=== PATIENT | male | born 1955 | race Two or more races ===

== ENCOUNTER 2025-07-04 03:16 | Inpatient (IN) | payer MEDICAID, OTHER ==
[~2025-07-04] VITALS: Ht 170.2 cm; Wt 99.5 kg
[2025-07-04] VITALS (10 sets, daily range): BP systolic 139–158; BP diastolic 77–92; PULSE 71–132; RESP 12–20; TEMP 98.1–98.8; O2SAT 94–100
--- NOTE | 2025-07-04 03:50 | ED.PDOC ---
GI ASSESSMENT HPI Comments 70-year-old male who came to ER for abdominal pain. Patient states he woke up at around 2:00 a.m. due to sudden-onset abdominal pain, localized at the epigastric area, sharp, constant, nonradiating, associated bouts of nausea and vomiting. Denies any history of abdominal surgeries/ Chief Complaint: Abdominal Pain Time Seen by MD: 03:49 Reviewed Notes: Nurses Notes Allergies: Coded Allergies: No Known Drug Allergy (Verified Allergy, Unknown, 07/04/25) Information Source: Patient Mode of Arrival: Ambulatory Timing: Hours Duration: Since onset Prehospital treatment: None Quality: Sharp, None Vomitus: Watery Stool: Normal Severity: Moderate Recent Hx of: None Pain Location: Epigastric Associated sign and symptoms: Nausea, Vomiting, Abdominal Pain Past Medical History PAST MEDICAL HISTORY: DM, HTN Surgical History: Denies all surgeries Family History Family History: Reviewed,noncontributory to illness Social History Smoker: Non-Smoker Alcohol: Denies ETOH Use Drugs: Denies Drug Use Lives In: Home Constitutional: denies: chills, diaphoresis, fatigue, fever, malaise, sweats, weakness, others EENTM: denies: blurred vision, double vision, ear bleeding, ear discharge, ear drainage, ear pain, ear ringing, eye pain, eye redness, hearing loss, mouth pain, mouth swelling, nasal discharge, nose bleeding, nose congestion, nose pain, photophobia, tearing, throat pain, throat swelling, voice changes, others Respiratory: denies: cough, hemoptysis, orthopnea, SOB at rest, shortness of breath, SOB with excertion, stridor, wheezing, others Cardiovascular: denies: chest pain, dizzy spells, diaphoresis, Dyspnea on exertion, edema, irregular heart beat, left arm pain, lightheadedness, palpitations, PND, syncope, others Gastrointestinal: reports: abdominal pain, nausea, vomiting; denies: abdomen distended, blood streaked bowels, constipated, diarrhea, dysphagia, difficulty swallowing, hematemesis, melena, poor appetite, poor fluid intake, rectal bleeding, rectal pain, others Genitourinary: denies: burning, dysuria, flank pain, frequency, hematuria, incontinence, penile discharge, penile sore, pain, testicle pain, testicle sw elling, urgency, others Neurological: denies: dizziness, fainting, headache, left sided numbness, left sided weakness, numbness, paresthesia, pre-existing deficit, right sided numbness, right sided weakness, seizure, speech problems, tingling, tremors, weakness, others Musculoskeletal: denies: back pain, gout, joint pain, joint swelling, muscle pain, muscle stiffness, neck pain, others Integumetry: denies: bruises, change in color, change in hair/nails, dryness, laceration, lesions, lumps, rash, wounds, others Allergic/Immunocompromised: denies: Difficulty Healing, Frequent Infections, Hives, Itching, others Hematologic/Lymphatic: denies: anemia, blood clots, easy bleeding, easy bruising, swollen glands, others Endocrine: denies: excessive hunger, excessive sweating, excessive thirst, excessive urination, flushing, intolerance to cold, intolerance to heat, unexplained weight gain, unexplained weight loss, others Psychiatric: denies: anxiety, bipolar disorder, depression, hopeless, panic disorder, schizophrenia, sleepless, suicidal, others Physical Exam General Appearance: Moderate Distress, Normal HEENT: Normal ENT Inspection, Pharynx Normal, TMs Normal Neck: Full Range of Motion, Non-Tender, Normal, Normal Inspection Respiratory: Chest Non-Tender, Lungs Clear, No Accessory Muscle Use, No Respiratory Distress, Normal Breath Sounds Cardiovascular: No Edema, No JVD, No Murmur, No Gallop, Normal Peripheral Pulses, Regular Rate/Rhythm Breast Exam: Deferred Gastrointestinal: Diffuse, No Organomegaly, No Pulsatile Mass, Normal Bowel Sounds, Soft Genitalia: Deferred Pelvic: Deferred Rectal: Deferred Extremities: No calf tenderness, Normal capillary refill, Normal inspection, Normal range of motion, Non-tender, No pedal edema Musculoskeletal : Apperance: Normal Neurologic: Alert, rock wool insulator II-XII nml as Tested, No Motor Deficits, Normal Affect, Normal Mood, No Sensory Deficits Cerebellar Function: NOT DONE Reflexes: NOT DONE Skin: Dry, Normal Color, Warm Peripheral Pulses: 3+ Radial (R), 3+ Radial (L) Lymphatic: No Adenopathy Was a procedure done? Was a procedure done?: No GI differential Dx Differential Diagnosis: Diverticular disease, Esophagitis, Gastritis/PUD, Gastroenteritis, Hernia, Hepatitis, Pancreatitis, UTI, Urolithiasis X-Ray, Labs, Meds, VS Vital Signs Date Time Temp Pulse Resp B/P (MAP) Pulse Ox O2 Delivery O2 Flow Rate FiO2 07/04/25 05:06 71 16 161/71 07/04/25 04:57 71 16 94 Room Air* 0 21 07/04/25 04:53 98.4 71 16 161/71 (101) 94 98.4 07/04/25 03:17 97.6 71 16 166/113 96 97.6 Lab Test 07/04/25 04:01 Range/Units White Blood Count 12.8 H 4.4-10.8 10^3/uL Red Blood Count 5.48 4.5-5.90 10^6/uL Hemoglobin 16.3 13.5-17.5 g/dL Hematocrit 48.5 41.0-53.0 % Mean Corpuscular Volume 88.5 80.0-100.0 fL Mean Corpuscular Hemoglobin 29.7 28.0-32.0 pg Mean Corpuscular Hemoglobin Concent 33.6 32.0-36.0 g/dL Red Cell Distribution Width 14.9 H 11.8-14.3 % Platelet Count 208 140-450 10^3/uL Mean Platelet Volume 9.8 6.9-10.8 fL Neutrophils (%) (Auto) 65.9 37.0-80.0 % Lymphocytes (%) (Auto) 24.6 10.0-50.0 % Monocytes (%) (Auto) 8.3 0.0-12.0 % Eosinophils (%) (Auto) 0.9 0.0-7.0 % Basophils (%) (Auto) 0.3 0.0-2.0 % Neutrophils # (Auto) 8.5 1.6-8.6 10 ^3/uL Lymphocytes # (Auto) 3.2 0.4-5.4 10 ^3/uL Monocytes # (Auto) 1.1 0-1.3 10 ^3/uL Eosinophils # (Auto) 0.1 0-0.8 10 ^3/uL Basophils # (Auto) 0 0-0.2 10 ^3/uL Nucleated Red Blood Cells 0.1 % Sodium Level 140 136-145 mmol/L Potassium Level 3.4 L 3.5-5.1 mmol/L Chloride Level 103 98-107 mmol/L Carbon Dioxide Level 25 20-31 mmol/L Anion Gap 12 5-15 Blood Urea Nitrogen 14 9-23 mg/dL Creatinine 0.99 0.700-1.30 mg/dL Glomerular Filtration Rate Calc 81 >90 mL/min BUN/Creatinine Ratio 14.1 10.0-20.0 Serum Glucose 208 H 74-106 mg/dL Calcium Level 9.3 8.7-10.4 mg/dL Total Bilirubin 0.5 0.2-1.0 mg/dL Aspartate Amino Transferase (AST) 28 13-40 U/L Alanine Aminotransferase (ALT) 21 7-40 U/L Alkaline Phosphatase 106 46-116 U/L Total Protein 8.0 5.7-8.2 g/dL Albumin 4.5 3.2-4.8 g/dL Lipase 36 12-53 U/L Current Medications Medications (Trade) Dose Ordered Sig/Talib Route Start Time Stop Time Status Last Admin Ondansetron HCl (Zofran) 4 mg ONCE ONCE IV 07/04/25 04:00 07/04/25 04:01 DC 07/04/25 05:06 Sodium Chloride 1,000 ml @ 1,000 mls/hr Q1H ONCE IVB 07/04/25 04:00 07/04/25 04:59 DC 07/04/25 04:00 Morphine Sulfate 4 mg ONCE ONCE IV 07/04/25 04:00 07/04/25 04:01 DC 07/04/25 05:06 Patient alert. Complaining of abdominal pain. CT scan of the abdomen reviewed does show hernia old findings along with small bowel obstruction. Vitals stable. Surgical consultation. NG tube. Pain controlled with morphine. Establish intravenous access. Was given fluids. Was given Zofran. Blood sugar elevated. WBC slightly elevated. Blood cultures. Lactic acid. Was given Zosyn. Was given Flagyl. Explained to the patient. Continue monitoring. Time of 1ST Reevaluation: 03:47 Reevaluation 1ST: Unchanged Patient Education/Counseling: Diagnosis, Treatment Family Education/Counseling: Diagnosis, Treatment SEPSIS Sepsis Screen Date sepsis recognized/suspect: Jul 04, 2025 Time Sepsis recognized/suspect: 329 Recent Procedure: No On Antibiotic Therapy: No Respiratory Rate >20: No Heart Rate >90: No Temp<36 C (96.8 F) or >38.3 C: No SBP <90 or MAP <65 mmHG: No New Acute Mental Status Change: No Is the patient on CPAP, BIPAP,: No Physician Orders Urinalysis (07/04/25 03:47) Ct Ab Pel With Iv Con Only (07/04/25 03:47) Vital Signs Date Time Temp Pulse Resp B/P (MAP) Pulse Ox O2 Delivery O2 Flow Rate FiO2 07/04/25 05:06 71 16 161/71 07/04/25 04:57 71 16 94 Room Air* 0 21 07/04/25 04:53 98.4 71 16 161/71 (101) 94 98.4 07/04/25 03:17 97.6 71 16 166/113 96 97.6 Laboratory Tests Test 07/04/25 04:01 White Blood Count 12.8 10^3/uL (4.4-10.8) H Medications Medications Dose Ordered Sig/Talib Route Start Time Stop Time Status Last Admin Dose Admin Morphine Sulfate 4 mg ONCE ONCE IV 07/04/25 04:00 07/04/25 04:01 DC 07/04/25 05:06 Ondansetron HCl 4 mg ONCE ONCE IV 07/04/25 04:00 07/04/25 04:01 DC 07/04/25 05:06 Sodium Chloride 1,000 ml @ 1,000 mls/hr Q1H ONCE IVB 07/04/25 04:00 07/04/25 04:59 DC 07/04/25 04:00 Departure 1 Departure Time of Disposition: 07:07 Impression: Primary Impression: Incarcerated hernia Additional Impressions: Acute abdominal pain Small bowel obstruction Disposition: ADMITTED INPATIENT Admit to: Med Surg Condition: Guarded Critical Care Note Critical Care Time?: Yes (90 min-critical care time only) Stability Stability form required: No Heart Score Heart Score: Heart Score Response (Comments) Value History N/A 0 EKG N/A 0 Age N/A 0 Risk Factors N/A 0 Troponin N/A 0 Total 0 I personally scribed for DON LEONARDO MD ([email or web address]) on 07/04/25 at 03:50. Electronically submitted by Félix Clement ([email or web address]). DON LEONARDO MD Jul 04, 2025 03:50 CORONA HAILE MD Jul 04, 2025 07:07
[2025-07-04] MEDS: SODIUM CHLORIDE 0.9% 1,000 ML IVB ONE (04:00)
[2025-07-04 04:54] LABS: Alanine Aminotransferase 21 U/L (7-40); Albumin 4.5 g/dL (3.2-4.8); Alkaline Phosphatase 106 U/L (46-116); Anion Gap 12 (5-15); BUN/Creatinine Ratio 14.1 (10.0-20.0); Bilirubin, Total 0.5 mg/dL (0.2-1.0); Blood Urea Nitrogen 14 mg/dL (9-23); Calcium 9.3 mg/dL (8.7-10.4); Carbon Dioxide 25 mmol/L (20-31); Chloride 103 mmol/L (98-107); Lipase 36 U/L (12-53); Sodium 140 mmol/L (136-145); Total Protein 8.0 g/dL (5.7-8.2)
[2025-07-04 04:57] LABS: Glucose 208 mg/dL (74-106); Potassium 3.4 mmol/L (3.5-5.1)
[2025-07-04 05:02] LABS: Hematocrit 48.5 % (41.0-53.0); Hemoglobin 16.3 g/dL (13.5-17.5); Mean Corpuscular Hemoglobin 29.7 pg (28.0-32.0); Mean Corpuscular Volume 88.5 fL (80.0-100.0); Nucleated Red Blood Cells % 0.1 %
[2025-07-04] MEDS: MORPHINE SULFATE 4 MG/ML SYR/VIAL IV ONE (05:06)
[2025-07-04] MEDS: ONDANSETRON HCL 4 MG/2 ML VIAL IV ONE (05:06)
[2025-07-04] MEDS: IOHEXOL 300 MG/ML 100ML BOTTLE IJ ONE (05:20)
--- NOTE | 2025-07-04 06:38 | DVH ---
Exam: CT CT AB PEL WITH IV CON ONLY History: abd pain COMPARISON: None Technique: Multidetector spiral CT of the abdomen and pelvis was performed from lung bases to pubic s ymphysis. Intravenous contrast was administered during this examination. Portal venous imaging was o btained. Axial, coronal and sagittal multiplanar reformats were performed by the technologist on a [employer] workstation. Radiation Dose : 1. Abdomen/Pelvis: CTDIvol 16.94 mGy, DLP 2103.55 mGy*cm. CONTRAST: Type of contrast: Contrast injected: ml Contrast ingested: ml Findings: Lung Bases: No acute or significant lung base finding. Mild posterior bibasilar atelectasis. Normal heart size. No pleural or pericardial effusion. Liver: The liver is enlarged, measuring 20.2 cm in craniocaudal dimension. No focal lesions. Normal hepatic vascular enhancement. Gallbladder and Biliary Tree: Unremarkable Spleen: Unremarkable Pancreas: The pancreas is normal in appearance without focal lesions or abnormal enhancement. Adrenal Glands: Unremarkable Kidneys: No nephrolithiasis or hydronephrosis. Bilateral renal cortical cysts measure up to 1.8 cm on the left and 1.7 cm on the right. Bladder: Unremarkable Bowel: The stomach is grossly normal in appearance. Small bowel and colon are normal in caliber and d istribution. The appendix is normal. Ascites: Absent Lymphadenopathy: No mesenteric, retroperitoneal or periportal lymphadenopathy. Abdominal Wall and Mesentery: Unremarkable. Vasculature: The visualized abdominal aorta is mildly ectatic and tortuous in its course. Atheroscler otic vascular calcifications. Abdominal and pelvic vessels demonstrate normal enhancement. Pelvic Organs: The prostate is enlarged, measuring 5.4 cm in transverse dimension. Large left inguin al hernia contains fat and a segment of incarcerated small bowel with associated upstream obstruction of dilated fluid and gas-filled segments of small bowel exhibiting air-fluid levels. Right inguinal hernia contains fat and a small portion of the urinary bladder. Musculoskeletal: No aggressive focal bony lesions, acute fractures or dislocation. IMPRESSION: 1. Large left inguinal hernia containing an incarcerated segment of small bowel with associated upstr eam small bowel obstruction. 2. Small right inguinal hernia contains a partial segment of the urinary bladder. 3. Mildly ectatic and tortuous abdominal aorta and atherosclerotic vascular calcifications. Radiation optimization: All CT scans at this facility use at least one of these dose optimization kinga hniques: automated exposure control mA and/or kV adjustment per patient size (includes targeted exam s where dose is matched to clinical indication) or iterative reconstruction.
[2025-07-04] MEDS ORDERED: ACETAMINOPHEN 325 MG TAB PO PRN (07:30)
--- NOTE | 2025-07-04 07:32 | DVHHP2 ---
History of Present Illness Reason for Visit: Abdominal pain History of Present Illness A 70-year-old Yoruba-speaking male with past medical history of hypertension and diabetes type 2, presents to the emergency department accompanied by his brother, who assists with translation. The patient reports the sudden onset of generalized abdominal pain associated with nausea that began around 2:00 a.m. today. The pain was persistent and progressively worsening, which prompted him to seek medical attention. He denies vomiting, diarrhea, constipation, melena, or hematochezia. He reports no fever or chills. He has no known history of prior abdominal surgery. His past medical history significant for hypertension and diabetes type 2. Past Medical History DM type 2 Hypertension Past Surgical History Denies Family History Reviewed, non-contributory to the management of this case. Past Social History The patient lives at home, denies smoking, alcohol or illicit drugs abuse. Review of Systems Constitutional: Yes: Malaise; No: Fever, Chills, Sweats, Weakness, Other Eyes: No: Pain, Vision change, Conjunctivae inflammation, Eyelid inflammation, Other, Redness ENT: No: Ear pain, Ear discharge, Nose pain, Nose discharge, Nose congestion, Mouth pain, Mouth swelling, Throat pain, Throat swelling, Other Respiratory: No: Cough, Dry, Shortness of breath, SOB with excertion, Wheezing, Hemoptysis, Pleuritic Pain, Sputum, Wheezing, Other Cardiovascular: No: Chest Pain, Palpitations, Orthopnea, Paroxysmal Noc. Dyspnea, Edema, Lt Headedness, Other Gastrointestinal: Nausea, Abdominal Pain; No: Vomiting, Diarrhea, Constipation, Melena, Hematochezia, Other Genitourinary: No Dysuria, No Frequency, No Incontinence, No Hematuria, No Retention, No Other Musculoskeletal: No: other, neck pain, shoulder pain, arm pain, back pain, hand pain, leg pain, foot pain Skin: No: Rash, Lesions, Jaundice, Bruising, Other Neurological: No: Weakness, Numbness, Incoordination, Change in speech, Confusion, Seizures, Other Allergies: Coded Allergies: No Known Drug Allergy (Verified Allergy, Unknown, 07/04/25) Exam Vital Signs Vital Signs Date Time Temp Pulse Resp B/P (MAP) Pulse Ox O2 Delivery O2 Flow Rate FiO2 07/04/25 05:06 71 16 161/71 07/04/25 04:57 94 Room Air* 0 21 07/04/25 04:53 98.4 98.4 General Appearance: Alert, Oriented X3, Cooperative, mild distress HEENT: Atraumatic, PERRLA, EOMI, Mucous membr. moist/pink Respiratory: Clear to auscultation, Normal air movement Cardiovascular: Regular rate, Normal S1, Normal S2 Abdominal: Normal bowel sounds, Other (Distended, tender to palpation in the low were abdomen and left inguinal region) Extremities: No clubbing, No cyanosis, No edema Skin: No rashes, No breakdown, No significant lesion Neuro: Normal gait, Normal speech, Strength at 5/5 X4 ext Labs/Xrays Labs Test 07/04/25 04:01 Range/Units White Blood Count 12.8 H 4.4-10.8 10^3/uL Red Blood Count 5.48 4.5-5.90 10^6/uL Hemoglobin 16.3 13.5-17.5 g/dL Hematocrit 48.5 41.0-53.0 % Mean Corpuscular Volume 88.5 80.0-100.0 fL Mean Corpuscular Hemoglobin 29.7 28.0-32.0 pg Mean Corpuscular Hemoglobin Concent 33.6 32.0-36.0 g/dL Red Cell Distribution Width 14.9 H 11.8-14.3 % Platelet Count 208 140-450 10^3/uL Mean Platelet Volume 9.8 6.9-10.8 fL Neutrophils (%) (Auto) 65.9 37.0-80.0 % Lymphocytes (%) (Auto) 24.6 10.0-50.0 % Monocytes (%) (Auto) 8.3 0.0-12.0 % Eosinophils (%) (Auto) 0.9 0.0-7.0 % Basophils (%) (Auto) 0.3 0.0-2.0 % Neutrophils # (Auto) 8.5 1.6-8.6 10 ^3/uL Lymphocytes # (Auto) 3.2 0.4-5.4 10 ^3/uL Monocytes # (Auto) 1.1 0-1.3 10 ^3/uL Eosinophils # (Auto) 0.1 0-0.8 10 ^3/uL Basophils # (Auto) 0 0-0.2 10 ^3/uL Nucleated Red Blood Cells 0.1 % Sodium Level 140 136-145 mmol/L Potassium Level 3.4 L 3.5-5.1 mmol/L Chloride Level 103 98-107 mmol/L Carbon Dioxide Level 25 20-31 mmol/L Anion Gap 12 5-15 Blood Urea Nitrogen 14 9-23 mg/dL Creatinine 0.99 0.700-1.30 mg/dL Glomerular Filtration Rate Calc 81 >90 mL/min BUN/Creatinine Ratio 14.1 10.0-20.0 Serum Glucose 208 H 74-106 mg/dL Calcium Level 9.3 8.7-10.4 mg/dL Total Bilirubin 0.5 0.2-1.0 mg/dL Aspartate Amino Transferase (AST) 28 13-40 U/L Alanine Aminotransferase (ALT) 21 7-40 U/L Alkaline Phosphatase 106 46-116 U/L Total Protein 8.0 5.7-8.2 g/dL Albumin 4.5 3.2-4.8 g/dL Lipase 36 12-53 U/L PROCEDURE(s): ABPLIV - CT AB PEL WITH IV CON ONLY REASON: abd pain ORDER NUMBER(s): [id number], ACCESSION NUMBER(s): [id number] Exam: CT CT AB PEL WITH IV CON ONLY History: abd pain COMPARISON: None Technique: Multidetector spiral CT of the abdomen and pelvis was performed from lung bases to pubic symphysis. Intravenous contrast was administered during this examination. Portal venous imaging was obtained. Axial, coronal and sagittal multiplanar reformats were performed by the technologist on a separate workstation. Radiation Dose : 1. Abdomen/Pelvis: CTDIvol 16.94 mGy, DLP 2103.55 mGy*cm. CONTRAST: Type of contrast: Contrast injected: ml Contrast ingested: ml Findings: Lung Bases: No acute or significant lung base finding. Mild posterior bibasilar atelectasis. Normal heart size. No pleural or pericardial effusion. Liver: The liver is enlarged, measuring 20.2 cm in craniocaudal dimension. No focal lesions. Normal hepatic vascular enhancement. Gallbladder and Biliary Tree: Unremarkable Spleen: Unremarkable Pancreas: The pancreas is normal in appearance without focal lesions or abnormal enhancement. Adrenal Glands: Unremarkable Kidneys: No nephrolithiasis or hydronephrosis. Bilateral renal cortical cysts measure up to 1.8 cm on the left and 1.7 cm on the right. Bladder: Unremarkable Bowel: The stomach is grossly normal in appearance. Small bowel and colon are normal in caliber and distribution. The appendix is normal. Ascites: Absent Lymphadenopathy: No mesenteric, retroperitoneal or periportal lymphadenopathy. Abdominal Wall and Mesentery: Unremarkable. Vasculature: The visualized abdominal aorta is mildly ectatic and tortuous in its course. Atherosclerotic vascular calcifications. Abdominal and pelvic vessel s demonstrate normal enhancement. Pelvic Organs: The prostate is enlarged, measuring 5.4 cm in transverse dimension. Large left inguinal hernia contains fat and a segment of incarcerated small bowel with associated upstream obstruction of dilated fluid a nd gas-filled segments of small bowel exhibiting air-fluid levels. Right inguinal hernia contains fat and a small portion of the urinary bladder. Musculoskeletal: No aggressive focal bony lesions, acute fractures or dislocation. IMPRESSION: 1. Large left inguinal hernia containing an incarcerated segment of small bowel with associated upstream small bowel obstruction. 2. Small right inguinal hernia contains a partial segment of the urinary bladder. 3. Mildly ectatic and tortuous abdominal aorta and atherosclerotic vascular calcifications. SEPSIS Sepsis Screen Date sepsis recognized/suspect: Jul 04, 2025 Time Sepsis recognized/suspect: 04:54 Recent Procedure: No On Antibiotic Therapy: No Respiratory Rate >20: No Heart Rate >90: No Temp<36 C (96.8 F) or >38.3 C: No SBP <90 or MAP <65 mmHG: No New Acute Mental Status Change: No Is the patient on CPAP, BIPAP,: No Physician Orders Urinalysis (07/04/25 03:47) Ct Ab Pel With Iv Con Only (07/04/25 03:47) * Surgical Consult (07/04/25 ) Ngt/Ogt (07/04/25 ) Blood Culture (07/04/25 07:07) Lactic Acid W/ Reflex Order (07/04/25 07:07) Piperacillin-Tazob 3.375gm (Zosyn 3.375g (07/04/25 07:15) Metronidazole 500mg/100ml (Flagyl 500mg/ (07/04/25 07:15) Sodium Chloride 0.9% (07/04/25 07:15) Sodium Chloride 0.9% (07/04/25 07:15) Admit (07/04/25 07:20) Code Status (07/04/25 07:20) 0.9% Ns 1000 Ml (07/04/25 07:30) Vital Signs Date Time Temp Pulse Resp B/P (MAP) Pulse Ox O2 Delivery O2 Flow Rate FiO2 07/04/25 05:06 71 16 161/71 07/04/25 04:57 71 16 94 Room Air* 0 21 07/04/25 04:53 98.4 71 16 161/71 (101) 94 98.4 07/04/25 03:17 97.6 71 16 166/113 96 97.6 Laboratory Tests Test 07/04/25 04:01 White Blood Count 12.8 10^3/uL (4.4-10.8) H Medications Medications Dose Ordered Sig/Talib Route Start Time Stop Time Status Last Admin Dose Admin Morphine Sulfate 4 mg ONCE ONCE IV 07/04/25 04:00 07/04/25 04:01 DC 07/04/25 05:06 4 MG Ondansetron HCl 4 mg ONCE ONCE IV 07/04/25 04:00 07/04/25 04:01 DC 07/04/25 05:06 4 MG Sodium Chloride 1,000 ml @ 1,000 mls/hr Q1H ONCE IVB 07/04/25 04:00 07/04/25 04:59 DC 07/04/25 04:00 1,000 MLS/HR Assessment/Plan Assessment/Plan # Incarcerated hernia with small-bowel obstruction * Admit to medical-surgical unit * Empiric antibiotic metronidazole and Zosyn * IV fluid * NG tube to low intermittent suction * Antiemetics * Surgical consultation #Hypertension * Continue Losartan and HCTZ * Hydralazine p.r.n. * Monitor #Diabetes type 2 * Check A1c and lipid panel * Insulin sliding scale DVT prophylaxis with SCD Medical plan discussed with patient and brother Plan discussed with: Patient My Orders Orders - ROBERTO CHANEY Procedure Category Date Status Time Admit ADMIT 07/04/25 Verified 07:20 Code Status CODE 07/04/25 Verified 07:20 0.9% Ns 1000 Ml PHA 07/04/25 Verified 07:30 Date of Service: Jul 04, 2025 Billing Provider: ROBERTO CHANEY Common Visit Codes: 49154-[id number] INP/OBS CARE (HIGH) Consultation Codes: [id number] CONSULT <45MIN ROBERTO CHANEY Jul 04, 2025 07:32
[2025-07-04] MEDS ORDERED: DEXTROSE (50%) 50ML SYRG IV PRN (08:00)
[2025-07-04 08:15] LABS: Triglycerides 95 mg/dL (< 150)
[2025-07-04 08:17] LABS: Cholesterol 180 mg/dL (< 200); HDL Cholesterol 57 mg/dL (40-59)
[2025-07-04 08:23] LABS: INR 1.01 (0.9-1.15); Partial Thromboplastin Time 25.1 SEC (24.5-34.5); Prothrombin Time 10.7 sec (9.3-11.8)
[2025-07-04] MEDS: SODIUM CHLORIDE 0.9% 1,000 ML IV ONE ×2 (08:47→09:53)
[2025-07-04 09:00] LABS: Urine Protein, UAD 1+ (Negative)
--- NOTE | 2025-07-04 09:19 | DVH ---
XY CHEST PORTABLE, HISTORY: NG TUBE PLACEMENT COMPARISON: None None TECHNICAL DATA: 1 view of the chest was obtained. FINDINGS: Lines and tubes: NG in stomach. Cardiomediastinal silhouette: normal Pulmonary vasculature: normal Lung expansion: low Lung airspace: normal Lung interstitium: normal Pleura: normal Pneumothorax: no Bones: Unremarkable Other: no IMPRESSION: No acute intrathoracic abnormality. NG in stomach.
[2025-07-04] MEDS: LABETALOL HCL 20 MG/4 ML VL IV ONE ×2 (09:49→16:30)
[2025-07-04] MEDS: ONDANSETRON HCL 4 MG/2 ML VIAL IV PRN (09:56)
[2025-07-04] MEDS: MORPHINE SULFATE INJ 2 MG/ml SYRG IV PRN (09:56)
[2025-07-04] MEDS: SODIUM CHLORIDE 0.9% 1,000 ML IV SCH ×2 (10:00→16:30)
[2025-07-04] MEDS: LOSARTAN POTASSIUM 50 MG TAB PO SCH (10:00)
[2025-07-04] MEDS: hydroCHLOROthiazide 25 MG TAB PO SCH (10:00)
[2025-07-04] MEDS: PIPERACILLIN-TAZOB 3.375GM 100 ML IV ONE (10:06)
--- NOTE | 2025-07-04 10:36 | DVHINCON2 ---
Date of service: Jul 04, 2025 History of Present Illness 70-year-old male with uncontrolled diabetes admitted secondary to one day history of diffuse abdominal pain associated with nausea and vomiting. Past Medical History Diabetes. Blind in his right eye. Patient has not had a follow up with his primary care doctor in years. Past Surgical History None. Family History Noncontributory Social History Denies alcohol, tobacco, IV drug use Allergies: Coded Allergies: No Known Drug Allergy (Verified Allergy, Unknown, 07/04/25) Current Medications Current Medications Medications (Trade) Dose Ordered Sig/Talib Route PRN Reason Start Time Stop Time Status Last Admin Sodium Chloride 1,000 ml @ 75 mls/hr [id number] IV 07/04/25 07:30 Acetaminophen/ Hydrocodone Bitart ([place] 5/325MG Tab) 1 tab Q4HP PRN PO MODERATE PAIN (4-6 PAIN SCALE) 07/04/25 07:30 Ondansetron HCl (Zofran) 4 mg Q4HP PRN IV NAUSEA / VOMITING 07/04/25 07:30 07/04/25 09:56 Acetaminophen (Tylenol Tablet) 650 mg Q6HP PRN PO PAIN SCALE 1-3 OR TEMP>100.4 07/04/25 07:30 Morphine Sulfate 2 mg Q4HPRN PRN IV SEVERE PAIN (7-10 PAIN SCALE) 07/04/25 07:30 07/04/25 09:56 Metronidazole 100 ml @ 100 mls/hr Q8HR IV 07/04/25 14:00 Piperacillin Sod/ Tazobactam Sod 100 ml @ 25 mls/hr Q8HR IV 07/04/25 14:00 Diagnostic Test (Pha) (Accu-Chek Comfort Curve T) 1 strip Q6HR 07/04/25 12:00 Insulin Human Regular (InsuLIN R) Q6HR SC 07/04/25 12:00 Dextrose 50 ml UD PRN IV Blood Sugar LESS THAN 60 07/04/25 08:00 Hydralazine HCl (Apresoline Injection) 10 mg Q6HP PRN IV SBP>150 07/04/25 08:15 Losartan Potassium (Cozaar Tablet) 100 mg DAILY PO 07/04/25 10:00 Hydrochlorothiazide (hydroCHLOROthiazide TABLET) 25 mg DAILY PO 07/04/25 10:00 Vital Signs Vital Signs Date Time Temp Pulse Resp B/P (MAP) Pulse Ox O2 Delivery O2 Flow Rate FiO2 07/04/25 09:56 80 16 191/115 07/04/25 09:05 97.8 95 97.8 07/04/25 09:03 Room Air* 0 21 Physical Exam GEN: Obese male in no acute distress. Alert. NG tube to low intermittent suction HEENT: Line in the right eye otherwise unremarkable. CV: RRR Respiratory: Coarse breath sounds ABD: Obese abdomen with moderate distention with diffuse tenderness to palpation with minimal guarding. There was also a large sliding left inguinal hernia into the scrotum that is incarcerated that is tender on palpation. CT of the abdomen and pelvis: Large left inguinal hernia containing incarcerated 2nd of of small bowel with a associated upstream small bowel obstruction. Musculoskeletal: No aggressive focal bony lesions, acute fractures or dislocation. Labs/Diagnostic Data Labs Test 07/04/25 08:18 07/04/25 08:05 07/04/25 04:01 Range/Units Urine Color Yellow Yellow Urine Clarity Clear Clear Urine pH 6.0 5.0-9.0 Urine Specific [place] > 1.050 H 1.001-1.035 Urine Protein 1+ H Negative Urine Ketones Negative Negative Urine Blood Negative Negative /uL Urine Nitrite Negative Negative Urine Bilirubin Negative Negative Urine Urobilinogen Normal Negative mg/dL Urine Leukocyte Esterase Negative Negative /uL Urine RBC 1 0 - 3 /hpf Urine Microscopic WBC 1 0-3 /HPF Urine Squamous Epithelial Cells None seen <5 /hpf Urine Bacteria None seen None Seen /hpf Urine Mucus Few None Seen Urine Glucose Trace Normal mg/dL Lactic Acid Level 1.2 0.4-2.0 mmol/L White Blood Count 12.8 H 4.4-10.8 10^3/uL Red Blood Count 5.48 4.5-5.90 10^6/uL Hemoglobin 16.3 13.5-17.5 g/dL Hematocrit 48.5 41.0-53.0 % Mean Corpuscular Volume 88.5 80.0-100.0 fL Mean Corpuscular Hemoglobin 29.7 28.0-32.0 pg Mean Corpuscular Hemoglobin Concent 33.6 32.0-36.0 g/dL Red Cell Distribution Width 14.9 H 11.8-14.3 % Platelet Count 208 140-450 10^3/uL Mean Platelet Volume 9.8 6.9-10.8 fL Neutrophils (%) (Auto) 65.9 37.0-80.0 % Lymphocytes (%) (Auto) 24.6 10.0-50.0 % Monocytes (%) (Auto) 8.3 0.0-12.0 % Eosinophils (%) (Auto) 0.9 0.0-7.0 % Basophils (%) (Auto) 0.3 0.0-2.0 % Neutrophils # (Auto) 8.5 1.6-8.6 10 ^3/uL Lymphocytes # (Auto) 3.2 0.4-5.4 10 ^3/uL Monocytes # (Auto) 1.1 0-1.3 10 ^3/uL Eosinophils # (Auto) 0.1 0-0.8 10 ^3/uL Basophils # (Auto) 0 0-0.2 10 ^3/uL Nucleated Red Blood Cells 0.1 % Prothrombin Time 10.7 9.3-11.8 sec Prothrombin Time INR 1.01 0.9-1.15 Activated Partial Thromboplast Time 25.1 24.5-34.5 SEC Sodium Level 140 136-145 mmol/L Potassium Level 3.4 L 3.5-5.1 mmol/L Chloride Level 103 98-107 mmol/L Carbon Dioxide Level 25 20-31 mmol/L Anion Gap 12 5-15 Blood Urea Nitrogen 14 9-23 mg/dL Creatinine 0.99 0.700-1.30 mg/dL Glomerular Filtration Rate Calc 81 >90 mL/min BUN/Creatinine Ratio 14.1 10.0-20.0 Serum Glucose 208 H 74-106 mg/dL Hemoglobin A1c 6.5 H <5.7 % A1C Calcium Level 9.3 8.7-10.4 mg/dL Total Bilirubin 0.5 0.2-1.0 mg/dL Aspartate Amino Transferase (AST) 28 13-40 U/L Alanine Aminotransferase (ALT) 21 7-40 U/L Alkaline Phosphatase 106 46-116 U/L Total Protein 8.0 5.7-8.2 g/dL Albumin 4.5 3.2-4.8 g/dL Triglycerides Level 95 < 150 mg/dL Cholesterol Level 180 < 200 mg/dL LDL Cholesterol 116 H < 100 mg/dL HDL Cholesterol 57 40-59 mg/dL Lipase 36 12-53 U/L Assessment 1. Small-bowel obstruction likely secondary to incarcerated large left inguinal hernia containing small intestine. 2. Uncontrolled diabetes and hypertension. 3. Small right inguinal hernia Plan/Recommendation 1. I recommended surgical repair of the left inguinal hernia as that is likely the source of his small-bowel obstruction. Patient is a high surgical risk due to his diabetic noncompliance as well as uncontrolled hypertension and the large size of his left inguinal hernia. He wants to think a little more prior to making a decision. Informed consent: The surgery and its risks including but not limited to infection, bleeding requiring possible blood transfusion with the risk of hepatitis or HIV infection, possible perioperative CA or stroke, possible hernia recurrence were explained to the patient and his nephew. All questions were answered to their satisfaction. He expressed verbal understanding but wished to wait before making his final decision. Plan discussed with: Patient, Other (nephew) DENNISE MULLINS MD Jul 04, 2025 10:36
[2025-07-04] MEDS: hydrALAZINE HCL 20 MG/ML VL IV PRN (10:50)
--- NOTE | 2025-07-04 11:06 | DVHPN2 ---
Subjective The patient and examined at bedside. The patient complained of severe abdominal pain. Reviewed: Care Plan, H&P, Labs, Medications, Previous Orders Changes from previous H/P or p: No Changes Eyes: No Pain, No Vision change, No Conjunctivae inflammation, No Eyelid inflammation, No Other, No Redness ENT: No Ear pain, No Ear discharge, No Nose pain, No Nose discharge, No Nose congestion, No Mouth pain, No Mouth swelling, No Throat pain, No Throat swelling, No Other Cardiovascular: No Chest Pain, No Palpitations, No Orthopnea, No Paroxysmal Noc. Dyspnea, No Edema, No Lt Headedness, No Other Respiratory: No Cough, No Dry, No Shortness of breath, No SOB with excertion, No Wheezing, No Hemoptysis, No Pleuritic Pain, No Sputum, No Other Gastrointestinal: Nausea; No Vomiting; Abdominal Pain; No Diarrhea, No Constipation, No Melena, No Hematochezia, No Other Genitourinary: No Dysuria, No Frequency, No Incontinence, No Hematuria, No Retention, No Other Musculoskeletal: No other, No neck pain, No shoulder pain, No arm pain, No back pain, No hand pain, No leg pain, No foot pain Skin: No Rash, No Lesions, No Jaundice, No Bruising, No Other Objective Vitals Vital Signs Date Time Temp Pulse Resp B/P (MAP) Pulse Ox O2 Delivery O2 Flow Rate FiO2 07/04/25 10:50 204/127 07/04/25 09:56 80 16 07/04/25 09:05 97.8 95 97.8 07/04/25 09:03 Room Air* 0 21 General Appearance: Alert, Oriented X3, Cooperative, moderate distress HEENT: Atraumatic, PERRLA, EOMI, Mucous membr. moist/pink Neck: Supple Cardiovascular: Regular rate, Normal S1, Normal S2, No murmurs, Gallops, Rubs Abdomen: Normal bowel sounds, Other (Tender in 4 quadrants.) Neuro: Cranial nerves 3-12 NL Psych/Mental Status: Mental status NL Medications Current Medications Medications Dose Ordered Sig/Talib Route Start Time Stop Time Status Last Admin Dose Admin Sodium Chloride 1,000 ml @ 75 mls/hr [id number] IV 07/04/25 07:30 Acetaminophen/ Hydrocodone Bitart 1 tab Q4HP PRN PO 07/04/25 07:30 Ondansetron HCl 4 mg Q4HP PRN IV 07/04/25 07:30 07/04/25 09:56 4 MG Acetaminophen 650 mg Q6HP PRN PO 07/04/25 07:30 Morphine Sulfate 2 mg Q4HPRN PRN IV 07/04/25 07:30 07/04/25 09:56 2 MG Metronidazole 100 ml @ 100 mls/hr Q8HR IV 07/04/25 14:00 Piperacillin Sod/ Tazobactam Sod 100 ml @ 25 mls/hr Q8HR IV 07/04/25 14:00 Diagnostic Test (Pha) 1 strip Q6HR 07/04/25 12:00 Insulin Human Regular Q6HR SC 07/04/25 12:00 Dextrose 50 ml UD PRN IV 07/04/25 08:00 Hydralazine HCl 10 mg Q6HP PRN IV 07/04/25 08:15 07/04/25 10:50 10 MG Losartan Potassium 100 mg DAILY PO 07/04/25 10:00 Hydrochlorothiazide 25 mg DAILY PO 07/04/25 10:00 Laboratory Results Laboratory Tests 07/04/25 04:01 Chemistry Test 07/04/25 04:01 Albumin 4.5 g/dL (3.2-4.8) Calcium Level 9.3 mg/dL (8.7-10.4) Total Protein 8.0 g/dL (5.7-8.2) Coagulation Test 07/04/25 04:01 Prothrombin Time 10.7 sec (9.3-11.8) Prothrombin Time INR 1.01 (0.9-1.15) Activated Partial Thromboplast Time 25.1 SEC (24.5-34.5) Lipid panel Test 07/04/25 04:01 Cholesterol Level 180 mg/dL (< 200) HDL Cholesterol 57 mg/dL (40-59) Lipase 36 U/L (12-53) Triglycerides Level 95 mg/dL (< 150) LFT Test 07/04/25 04:01 Alanine Aminotransferase (ALT) 21 U/L (7-40) Alkaline Phosphatase 106 U/L (46-116) Aspartate Amino Transferase (AST) 28 U/L (13-40) Total Bilirubin 0.5 mg/dL (0.2-1.0) HgA1c, TSH Test 07/04/25 04:01 Hemoglobin A1c 6.5 % A1C (<5.7) H Urinalysis Test 07/04/25 08:18 Urine Color Yellow (Yellow) Urine Clarity Clear (Clear) Urine pH 6.0 (5.0-9.0) Urine Specific [place] > 1.050 (1.001-1.035) Urine Protein 1+ (Negative) H Urine Ketones Negative (Negative) Urine Blood Negative /uL (Negative) Urine Nitrite Negative (Negative) Urine Bilirubin Negative (Negative) Urine Urobilinogen Normal mg/dL (Negative) Urine Leukocyte Esterase Negative /uL (Negative) Urine RBC 1 /hpf (0 - 3) Urine Microscopic WBC 1 /HPF (0-3) Urine Squamous Epithelial Cells None seen /hpf (<5) Urine Bacteria None seen /hpf (None Seen) Urine Mucus Few (None Seen) Urine Glucose Trace mg/dL (Normal) Labs and/or images reviewed: Labs reviewed by me Assessment/Plan Assessment/Plan # Incarcerated hernia with small-bowel obstruction * Continuing Empiric antibiotic metronidazole and Zosyn * IV fluid * NG tube to low intermittent suction * Antiemetics * Surgical consultation #Hypertension * Continue Losartan and HCTZ * Hydralazine p.r.n. * Monitor #Diabetes type 2 * Check A1c and lipid panel * Insulin sliding scale * Continuing current management Waiting for surgery today. Keep NPO for now This medical document was created using an electronic medical record system with M[employer] direct computerized dictation system. Although this document has been carefully reviewed, there may still be some phonetic and typographical errors. These areas are purely typographical due to imperfections of the software programs, and do not reflect any compromise in the patient's medical care. Plan discussed with: Patient Date of Service: Jul 04, 2025 Billing Provider: JAKE ARNOLD MD Common Visit Codes: [id number] INP/OBS CARE(HIGH) JAKE ARNOLD MD Jul 04, 2025 11:06
[2025-07-04] MEDS: ACCU-CHEK COMFORT CURVE STRIP VI SCH (11:56)
[2025-07-04] MEDS: InsuLIN REG 1unit/0.01ml Soln (100units/ml) SC SCH (11:56)
[2025-07-04] MEDS ORDERED: PIPERACILLIN-TAZOB 3.375GM 100 ML IV SCH (14:00)
[2025-07-04] MEDS: SUCCINYLCHOLINE CHLORIDE 20 MG/ML 10ML VIAL IV ONE (14:00)
[2025-07-04] MEDS ORDERED: fentaNYL CITRATE 100 MCG/2 ML VL ONE (14:04)
[2025-07-04] MEDS ORDERED: MIDAZOLAM HCL 2MG/2ML 2ml VIAL (1mg/ml) ONE (14:05)
[2025-07-04] MEDS: LIDOCAINE W/ EPINEPHRINE 1% 20ML VIAL ONE (14:36)
[2025-07-04] MEDS ORDERED: HYDROmorphone HCL 2 MG/ML VL/or syr ONE (15:23)
--- NOTE | 2025-07-04 15:45 | DVHOP2 ---
Operative Report - 2 Report Details Date: 07/04/25 Preop Diagnosis: Incarcerated left inguinal hernia with small bowel obstruction Postop Diagnosis: Strangulated left inguinal hernia with small bowel obstruction Surgeon: Alexei Munguia MD Plc Controls Engineer: None Anesthesiologist: Dr. Cuello Anesthesia: General, Local Consent: The surgery including but not limited to infection, bleeding requiring possible blood transfusion with the risk of hepatitis or HIV infection, possible perioperative OR or stroke, possible hernia recurrence, possible ischemic orchitis, possible bowel resection were explained to the patient with the help of child adolescent care. All questions were answered to his satisfaction. He expressed verbal understanding and wished to proceed with the surgery. Complications: None Estimated Blood Loss: 20 mL Fluids: 1.5 L Name of Procedure Performed Left inguinal hernia repair with mesh Procedure Details Procedure Details: After induction of general anesthesia, patient's left inguinal region including the scrotum were prepped and draped in standard surgical fashion. Approximately 20 mL of 1% lidocaine with epinephrine was used as local anesthesia in the left inguinal region. A large oblique incision was made in the left inguinal region incision extended through the soft tissue through the Wallace's fascia the tissue in this area was very attenuated due to the shear size of the hernia stretching out the tissue and some of the normal anatomy was not very well visualized. Incision extended down to appeared to be external oblique fascia which was very stretched out and attenuated. This was then divided the ilioinguinal nerve was not visualized eventually the sac was identified once this was opened there was large amount of serous fluid that was drained from the hernia sac. There was a large loop of small intestine that was strangulated in the hernia sac. The inguinal defect was roughly 4 cm in size and it was too tight to reduce the small intestine back into through the inguinal canal into the abdominal cavity. Relaxing incision had to be made laterally and superiorly to release some of the tension at the fascial edges. Once this was done the small intestine could be reduced back into the abdominal cavity. Although there was some ecchymosis involving the loop of intestine that was incarcerated there was no gross nec rosis of the small bowel. Once the small intestine was reduced back into the abdominal cavity through the inguinal defect, the hernia sac was then isolated from the surrounding structures and high ligation was performed using 0 Vicryl sutures at the level of the internal ring. Excess hernia sac was then excised and sent off to pathology. The cord structures were then finally identified and isolated. The vas deferens was identified and preserved. A Covidien ProGrip mesh was used for the repair. This was soaked in Ancef irrigation and placed at the floor of the inguinal canal. A single 2-0 Vicryl suture was used to secure the medial portion of the mesh to the pubic tubercle. The mesh was then wrapped around the cord structures without strangulation. The tail was then tucked underneath the external oblique fascia however the fascia was very attenuated in this area. External oblique fascia was then closed over the repair using running 0 Vicryl sutures. Wallace's fascia was reapproximated using interrupted 2-0 Vicryl sutures. Skin incision was then closed using penny. Surgical site was cleaned and dried and dressings were applied. Sponge, needle, instrument count at the end of the case were reported to be correct by the nursing staff. At the end of surgery I verified the patient's left testes was then normal descended position. The patient tolerated procedure well and at the time of dictation, he is being awakened from general anesthesia. Specimen: Hernia sac Condition Stable Disposition Still a Patient ALEXEI MUNGUIA MD Jul 04, 2025 15:45
[2025-07-04] MEDS ORDERED: SUGAMMADEX 200mg/2ml Vial (100MG/ML) IV ONE (15:57)
[2025-07-04] MEDS: ACETAMINOPHEN IV 100 ML IV ONE (16:14)
[2025-07-04] MEDS ORDERED: ONDANSETRON HCL 4 MG/2 ML VIAL IV PRN (16:15)
[2025-07-04] MEDS: IPRATROPIUM BROM 0.5 MG/2.5ML INH SOL NEB ONE (16:20)
[2025-07-04] MEDS: ACETAMINOPHEN IV 1000 MG/100ML (10MG/ML) IV ONE (16:20)
[2025-07-04] MEDS: ALBUTEROL SULF 2.5 MG/0.5ML(0.5%) NEB SOLN NEB ONE (16:20)
[2025-07-04] MEDS ORDERED: LABETALOL HCL 20 MG/4 ML VL IV PRN (16:30)
[2025-07-04] MEDS: HYDROmorphone HCL 2 MG/ML VL/or syr IV PRN ×2 (16:40→17:10)
[2025-07-04] MEDS: PIPERACILLIN-TAZOB 3.375GM 100 ML IV SCH (18:38)
[2025-07-05] VITALS (8 sets, daily range): BP systolic 124–172; BP diastolic 68–102; PULSE 86–104; RESP 17–19; TEMP 98.1–99; O2SAT 94–98
[2025-07-05 06:35] LABS: Alanine Aminotransferase 18 U/L (7-40); Albumin 3.8 g/dL (3.2-4.8); Alkaline Phosphatase 85 U/L (46-116); Anion Gap 9 (5-15); BUN/Creatinine Ratio 12.3 (10.0-20.0); Bilirubin, Total 0.7 mg/dL (0.2-1.0); Blood Urea Nitrogen 10 mg/dL (9-23); Carbon Dioxide 26 mmol/L (20-31); Chloride 105 mmol/L (98-107); Sodium 140 mmol/L (136-145); Total Protein 6.6 g/dL (5.7-8.2)
[2025-07-05 06:36] LABS: Calcium 8.1 mg/dL (8.7-10.4); Glucose 139 mg/dL (74-106); Potassium 3.1 mmol/L (3.5-5.1)
[2025-07-05 06:37] LABS: Hematocrit 42.1 % (41.0-53.0); Hemoglobin 14.6 g/dL (13.5-17.5); Mean Corpuscular Hemoglobin 30.3 pg (28.0-32.0); Mean Corpuscular Volume 87.4 fL (80.0-100.0); Nucleated Red Blood Cells % 0.1 %
[2025-07-05] MEDS ORDERED: PROPOFOL 10 MG/ML 20 ML IV ONE (11:26)
--- NOTE | 2025-07-05 12:13 | DVHPN2 ---
Subjective The patient and examined at bedside. The patient complained of severe abdominal pain. Status post surgery. Reviewed: Care Plan, H&P, Labs, Medications, Previous Orders Changes from previous H/P or p: No Changes Eyes: No Pain, No Vision change, No Conjunctivae inflammation, No Eyelid inflammation, No Other, No Redness ENT: No Ear pain, No Ear discharge, No Nose pain, No Nose discharge, No Nose congestion, No Mouth pain, No Mouth swelling, No Throat pain, No Throat swelling, No Other Cardiovascular: No Chest Pain, No Palpitations, No Orthopnea, No Paroxysmal Noc. Dyspnea, No Edema, No Lt Headedness, No Other Respiratory: No Cough, No Dry, No Shortness of breath, No SOB with excertion, No Wheezing, No Hemoptysis, No Pleuritic Pain, No Sputum, No Other Gastrointestinal: Nausea; No Vomiting; Abdominal Pain; No Diarrhea, No Constipation, No Melena, No Hematochezia, No Other Genitourinary: No Dysuria, No Frequency, No Incontinence, No Hematuria, No Retention, No Other Musculoskeletal: No other, No neck pain, No shoulder pain, No arm pain, No back pain, No hand pain, No leg pain, No foot pain Skin: No Rash, No Lesions, No Jaundice, No Bruising, No Other Objective Vitals Vital Signs Date Time Temp Pulse Resp B/P (MAP) Pulse Ox O2 Delivery O2 Flow Rate FiO2 07/05/25 12:06 87 18 161/101 07/05/25 10:00 96 Room Air 07/05/25 10:00 0 21 07/05/25 09:00 98.6 98.6 Intake/Output Intake and Output 07/05/25 07:00 Intake Total 2725 ml Output Total 1600 ml Balance 1125 ml Intake Oral 0 ml IV Total 2725 ml Output Urine Total 1600 ml General Appearance: Alert, Oriented X3, Cooperative, moderate distress HEENT: Atraumatic, PERRLA, EOMI, Mucous membr. moist/pink Neck: Supple Cardiovascular: Regular rate, Normal S1, Normal S2, No murmurs, Gallops, Rubs Abdomen: Normal bowel sounds, Other (Tender in 4 quadrants.) Neuro: Cranial nerves 3-12 NL Psych/Mental Status: Mental status NL Medications Current Medications Medications Dose Ordered Sig/Talib Route Start Time Stop Time Status Last Admin Dose Admin Acetaminophen/ Hydrocodone Bitart 1 tab Q4HP PRN PO 07/04/25 07:30 Ondansetron HCl 4 mg Q4HP PRN IV 07/04/25 07:30 07/05/25 05:33 4 MG Acetaminophen 650 mg Q6HP PRN PO 07/04/25 07:30 Morphine Sulfate 2 mg Q4HPRN PRN IV 07/04/25 07:30 07/05/25 12:06 2 MG Diagnostic Test (Pha) 1 strip Q6HR 07/04/25 12:00 07/05/25 12:05 1 STRIP Insulin Human Regular Q6HR SC 07/04/25 12:00 07/05/25 06:27 2 UNITS Dextrose 50 ml UD PRN IV 07/04/25 08:00 Hydralazine HCl 10 mg Q6HP PRN IV 07/04/25 08:15 07/05/25 12:05 10 MG Losartan Potassium 100 mg DAILY PO 07/04/25 10:00 Hydrochlorothiazide 25 mg DAILY PO 07/04/25 10:00 Sodium Chloride 1,000 ml @ 100 mls/hr Q10H IV 07/04/25 15:45 07/05/25 02:09 100 MLS/HR Labetalol HCl 5 mg Q15MP PRN IV 07/04/25 16:30 Piperacillin Sod/ Tazobactam Sod 100 ml @ 25 mls/hr Q8H IV 07/04/25 18:00 07/05/25 09:36 25 MLS/HR Potassium Chloride 100 ml @ 50 mls/hr Q2H IV 07/05/25 11:45 07/05/25 15:44 UNV Laboratory Results Laboratory Tests 07/05/25 05:34 Chemistry Test 07/05/25 05:34 Albumin 3.8 g/dL (3.2-4.8) Calcium Level 8.1 mg/dL (8.7-10.4) L Total Protein 6.6 g/dL (5.7-8.2) LFT Test 07/05/25 05:34 Alanine Aminotransferase (ALT) 18 U/L (7-40) Alkaline Phosphatase 85 U/L (46-116) Aspartate Amino Transferase (AST) 23 U/L (13-40) Total Bilirubin 0.7 mg/dL (0.2-1.0) Urinalysis Test 07/04/25 08:18 Urine Color Yellow (Yellow) Urine Clarity Clear (Clear) Urine pH 6.0 (5.0-9.0) Urine Specific [place] > 1.050 (1.001-1.035) Urine Protein 1+ (Negative) H Urine Ketones Negative (Negative) Urine Blood Negative /uL (Negative) Urine Nitrite Negative (Negative) Urine Bilirubin Negative (Negative) Urine Urobilinogen Normal mg/dL (Negative) Urine Leukocyte Esterase Negative /uL (Negative) Urine RBC 1 /hpf (0 - 3) Urine Microscopic WBC 1 /HPF (0-3) Urine Squamous Epithelial Cells None seen /hpf (<5) Urine Bacteria None seen /hpf (None Seen) Urine Mucus Few (None Seen) Urine Glucose Trace mg/dL (Normal) Microbiology Microbiology Date/Time Source Procedure Growth Status 07/04/25 08:05 Blood Blood Culture - Preliminary NO GROWTH AFTER 24 HOURS OF INCUBATION. Resulted Labs and/or images reviewed: Labs reviewed by me Assessment/Plan Assessment/Plan # Incarcerated hernia with small-bowel obstruction * Continuing Empiric antibiotic metronidazole and Zosyn * IV fluid * NG tube to low intermittent suction * Antiemetics * Surgical consultation #Hypertension * Continue Losartan and HCTZ * Hydralazine p.r.n. * Monitor #Diabetes type 2 * Check A1c and lipid panel * Insulin sliding scale * Continuing current management Waiting for surgery today. Keep NPO for now This medical document was created using an electronic medical record system with M*[employer]rency direct computerized dictation system. Although this document has been carefully reviewed, there may still be some phonetic and typographical errors. These areas are purely typographical due to imperfections of the software programs, and do not reflect any compromise in the patient's medical care. Plan discussed with: Patient My Orders Orders - JAKE ARNOLD MD Procedure Category Date Status Time Potassium Chl PHA 07/05/25 Logged 20meq/100ml 11:45 Date of Service: Jul 05, 2025 Billing Provider: JAKE ARNOLD MD Common Visit Codes: [id number] INP/OBS CARE(HIGH) Procedure Codes: [id number] NON-TUNNEL CV CATH JAKE ARNOLD MD Jul 05, 2025 12:13
[2025-07-05] MEDS: POTASSIUM CHL 20MEQ/100ML 100 ML IV SCH (13:01)
--- NOTE | 2025-07-05 13:34 | DVHPN2 ---
Progress Note - Dictate Date Seen: Jul 05, 2025 Medical Necessity Reason Pt with a Central, PICC or Fol: No Subjective E: no major events o/n. no complaints vital signs Vital Sign Date Time Temp Pulse Resp B/P (MAP) Pulse Ox O2 Delivery O2 Flow Rate FiO2 07/05/25 12:52 99.0 90 19 161/102 (121) 95 99.0 07/05/25 10:00 Room Air 07/05/25 10:00 0 21 Total Intake and Output 07/04/25 07/04/25 07/05/25 15:00 23:00 07:00 Intake Total 1425 ml 100 ml 1200 ml Output Total 700 ml 900 ml Balance 1425 ml -600 ml 300 ml medications Current Medications Medications Dose Ordered Sig/Talib Route Start Time Stop Time Status Last Admin Dose Admin Acetaminophen/ Hydrocodone Bitart 1 tab Q4HP PRN PO 07/04/25 07:30 Ondansetron HCl 4 mg Q4HP PRN IV 07/04/25 07:30 07/05/25 05:33 4 MG Acetaminophen 650 mg Q6HP PRN PO 07/04/25 07:30 Morphine Sulfate 2 mg Q4HPRN PRN IV 07/04/25 07:30 07/05/25 12:06 2 MG Diagnostic Test (Pha) 1 strip Q6HR 07/04/25 12:00 07/05/25 12:05 1 STRIP Insulin Human Regular Q6HR SC 07/04/25 12:00 07/05/25 06:27 2 UNITS Dextrose 50 ml UD PRN IV 07/04/25 08:00 Hydralazine HCl 10 mg Q6HP PRN IV 07/04/25 08:15 07/05/25 12:05 10 MG Losartan Potassium 100 mg DAILY PO 07/04/25 10:00 Hydrochlorothiazide 25 mg DAILY PO 07/04/25 10:00 Sodium Chloride 1,000 ml @ 100 mls/hr Q10H IV 07/04/25 15:45 07/05/25 02:09 100 MLS/HR Labetalol HCl 5 mg Q15MP PRN IV 07/04/25 16:30 Piperacillin Sod/ Tazobactam Sod 100 ml @ 25 mls/hr Q8H IV 07/04/25 18:00 07/05/25 09:36 25 MLS/HR Potassium Chloride 100 ml @ 50 mls/hr Q2H IV 07/05/25 11:45 07/05/25 15:44 07/05/25 13:01 50 MLS/HR objective GEN: NAD L INGUINAL: surgical dressing intact and dry. villarreal intact. laboratory and microbiology Laboratory Tests 07/05/25 05:34 Test 07/05/25 05:34 Range/Units Serum Glucose 139 H 74-106 mg/dL Assessment/Plan A: 1. s/p LIH repair with mesh for strangulated LIH 2. urinary retention postop P: 1. cont bladder training. Plan discussed with: Patient DENNISE MULLINS MD Jul 05, 2025 13:34
[2025-07-05] MEDS: ARTIFICIAL TEARS 15ml EACHEYE PRN (17:13)
[2025-07-06] VITALS (8 sets, daily range): BP systolic 150–161; BP diastolic 91–104; PULSE 82–95; RESP 16–19; TEMP 97.7–99; O2SAT 93–97
[2025-07-06] MEDS: HYDROcodone-ACET 5/325MG TAB PO PRN (00:27)
--- NOTE | 2025-07-06 08:56 | DVHPN2 ---
Progress Note - Dictate Date Seen: Jul 06, 2025 Medical Necessity Reason Pt with a Central, PICC or Fol: No Subjective E: no major events o/n. no complaints vital signs Vital Sign Date Time Temp Pulse Resp B/P (MAP) Pulse Ox O2 Delivery O2 Flow Rate FiO2 07/06/25 08:31 158/98 07/06/25 05:00 98.0 85 18 93 98.0 07/05/25 20:00 Nasal Cannula* 2 28 Total Intake and Output 07/05/25 07/05/25 07/06/25 15:00 23:00 07:00 Intake Total 600 ml 125 ml 250 ml Output Total 1200 ml 750 ml Balance 600 ml -1075 ml -500 ml medications Current Medications Medications Dose Ordered Sig/Talib Route Start Time Stop Time Status Last Admin Dose Admin Acetaminophen/ Hydrocodone Bitart 1 tab Q4HP PRN PO 07/04/25 07:30 07/06/25 00:27 1 TAB Ondansetron HCl 4 mg Q4HP PRN IV 07/04/25 07:30 07/06/25 00:39 4 MG Acetaminophen 650 mg Q6HP PRN PO 07/04/25 07:30 Morphine Sulfate 2 mg Q4HPRN PRN IV 07/04/25 07:30 07/05/25 12:06 2 MG Diagnostic Test (Pha) 1 strip Q6HR 07/04/25 12:00 07/06/25 06:33 1 STRIP Insulin Human Regular Q6HR SC 07/04/25 12:00 07/05/25 06:27 2 UNITS Dextrose 50 ml UD PRN IV 07/04/25 08:00 Hydralazine HCl 10 mg Q6HP PRN IV 07/04/25 08:15 07/05/25 17:14 10 MG Losartan Potassium 100 mg DAILY PO 07/04/25 10:00 07/06/25 08:31 100 MG Hydrochlorothiazide 25 mg DAILY PO 07/04/25 10:00 07/06/25 08:31 25 MG Sodium Chloride 1,000 ml @ 100 mls/hr Q10H IV 07/04/25 15:45 07/06/25 07:45 100 MLS/HR Labetalol HCl 5 mg Q15MP PRN IV 07/04/25 16:30 Piperacillin Sod/ Tazobactam Sod 100 ml @ 25 mls/hr Q8H IV 07/04/25 18:00 07/06/25 08:30 25 MLS/HR Artificial Tears 1 drop Q6HP PRN EACHEYE 07/05/25 16:00 07/05/25 17:13 1 DROP objective GEN: NAD L INGUINAL: surgical incision clean and dry. villarreal intact for bladder training. laboratory and microbiology Laboratory Tests 07/05/25 05:34 Test 07/05/25 05:34 Range/Units Serum Glucose 139 H 74-106 mg/dL Assessment/Plan A: 1. s/p LIH repair with mesh for strangulated LIH POD #2 2. urinary retention postop P: 1. cont bladder training. planned removal today 2. if discharged, f/u in my clinic next week. call [phone] for appt Plan discussed with: Patient DENNISE MULLINS MD Jul 06, 2025 08:56
[2025-07-06 09:14] LABS: Hematocrit 44.9 % (41.0-53.0); Hemoglobin 15.1 g/dL (13.5-17.5); Mean Corpuscular Hemoglobin 29.7 pg (28.0-32.0); Mean Corpuscular Volume 88.3 fL (80.0-100.0); Nucleated Red Blood Cells % 0.0 %
[2025-07-06 09:28] LABS: Alanine Aminotransferase 18 U/L (7-40); Albumin 3.8 g/dL (3.2-4.8); Alkaline Phosphatase 82 U/L (46-116); Anion Gap 10 (5-15); BUN/Creatinine Ratio 11.1 (10.0-20.0); Blood Urea Nitrogen 10 mg/dL (9-23); Carbon Dioxide 26 mmol/L (20-31); Chloride 104 mmol/L (98-107); Potassium 3.6 mmol/L (3.5-5.1); Sodium 140 mmol/L (136-145); Total Protein 6.9 g/dL (5.7-8.2)
[2025-07-06 09:29] LABS: Bilirubin, Total 1.0 mg/dL (0.2-1.0)
[2025-07-06 09:30] LABS: Calcium 8.5 mg/dL (8.7-10.4); Glucose 154 mg/dL (74-106)
--- NOTE | 2025-07-06 11:05 | DVHDS2 ---
Discharge Summary Date of Admission Jul 04, 2025 at 07:20 Date of Discharge: Jul 06, 2025 Admitting Diagnosis # Incarcerated hernia with small-bowel obstruction #Hypertension #Diabetes type 2 Labs/Diagnostic Data: Laboratory Results Test 07/06/25 08:48 07/06/25 06:30 07/04/25 08:18 07/04/25 08:05 White Blood Count 10.0 10^3/uL (4.4-10.8) Red Blood Count 5.08 10^6/uL (4.5-5.90) Hemoglobin 15.1 g/dL (13.5-17.5) Hematocrit 44.9 % (41.0-53.0) Mean Corpuscular Volume 88.3 fL (80.0-100.0) Mean Corpuscular Hemoglobin 29.7 pg (28.0-32.0) Mean Corpuscular Hemoglobin Concent 33.6 g/dL (32.0-36.0) Red Cell Distribution Width 15.0 % (11.8-14.3) Platelet Count 171 10^3/uL (140-450) Mean Platelet Volume 9.6 fL (6.9-10.8) Neutrophils (%) (Auto) 70.4 % (37.0-80.0) Lymphocytes (%) (Auto) 16.3 % (10.0-50.0) Monocytes (%) (Auto) 12.2 % (0.0-12.0) Eosinophils (%) (Auto) 0.8 % (0.0-7.0) Basophils (%) (Auto) 0.3 % (0.0-2.0) Neutrophils # (Auto) 7.0 10 ^3/uL (1.6-8.6) Lymphocytes # (Auto) 1.6 10 ^3/uL (0.4-5.4) Monocytes # (Auto) 1.2 10 ^3/uL (0-1.3) Eosinophils # (Auto) 0.1 10 ^3/uL (0-0.8) Basophils # (Auto) 0 10 ^3/uL (0-0.2) Nucleated Red Blood Cells 0.0 % Sodium Level 140 mmol/L (136-145) Potassium Level 3.6 mmol/L (3.5-5.1) Chloride Level 104 mmol/L (98-107) Carbon Dioxide Level 26 mmol/L (20-31) Anion Gap 10 (5-15) Blood Urea Nitrogen 10 mg/dL (9-23) Creatinine 0.90 mg/dL (0.700-1.30) Glomerular Filtration Rate Calc 91 mL/min (>90) BUN/Creatinine Ratio 11.1 (10.0-20.0) Serum Glucose 154 mg/dL (74-106) Calcium Level 8.5 mg/dL (8.7-10.4) Total Bilirubin 1.0 mg/dL (0.2-1.0) Aspartate Amino Transferase (AST) 20 U/L (13-40) Alanine Aminotransferase (ALT) 18 U/L (7-40) Alkaline Phosphatase 82 U/L (46-116) Total Protein 6.9 g/dL (5.7-8.2) Albumin 3.8 g/dL (3.2-4.8) POC Glucose 123 mg/dl (70-106) Urine Color Yellow (Yellow) Urine Clarity Clear (Clear) Urine pH 6.0 (5.0-9.0) Urine Specific Ledger > 1.050 (1.001-1.035) Urine Protein 1+ (Negative) Urine Ketones Negative (Negative) Urine Blood Negative /uL (Negative) Urine Nitrite Negative (Negative) Urine Bilirubin Negative (Negative) Urine Urobilinogen Normal mg/dL (Negative) Urine Leukocyte Esterase Negative /uL (Negative) Urine RBC 1 /hpf (0 - 3) Urine Microscopic WBC 1 /HPF (0-3) Urine Squamous Epithelial Cells None seen /hpf (<5) Urine Bacteria None seen /hpf (None Seen) Urine Mucus Few (None Seen) Urine Glucose Trace mg/dL (Normal) Lactic Acid Level 1.2 mmol/L (0.4-2.0) Test 07/04/25 04:01 Prothrombin Time 10.7 sec (9.3-11.8) Prothrombin Time INR 1.01 (0.9-1.15) Activated Partial Thromboplast Time 25.1 SEC (24.5-34.5) Hemoglobin A1c 6.5 % A1C (<5.7) Triglycerides Level 95 mg/dL (< 150) Cholesterol Level 180 mg/dL (< 200) LDL Cholesterol 116 mg/dL (< 100) HDL Cholesterol 57 mg/dL (40-59) Lipase 36 U/L (12-53) Other Laboratory Tests 07/06/25 08:48 Brief Hx & Hospital Course: This is a 70 years old male with past medical history of hypertension and diabetes come to emergency department because of severe abdominal pain with nausea for couple hours. The pain was persistent and progressive worsening prompt him to seek medical attention in the hospital. CT abdomen pelvis showed Large left inguinal hernia containing an incarcerated segment of small bowel with associated upstream small bowel obstruction. Small right inguinal hernia contains a partial segment of the urinary bladder. Mildly ectatic and tortuous abdominal aorta and atherosclerotic vascular calcifications. Surgery was consulted. The patient subsequently had surgery done to fix the inguinal hernia in the small-bowel obstruction. The patient hernia was repair with mesh. After surgery the patient doing well. He pass flatus. He ambulate. I am going to discharge him home. Advised him to follow up with primary care physician 1-2 weeks. Follow up with Dr. Munguia, surgeon per schedule. Activity as tolerated. Diet per home diet. Do not lift or carry any object more than 10 lb for two weeks Physical examined HEENT: Normocephalic atraumatic pupils equal react to light and accommodation. Extraocular muscles intact, conjunctiva pink, oropharynx moist, no thrush, no exudate. Lymphatic: No lymphadenopathy Cardiovascular exam: S1, S2 was heard. No murmurs, rubs, gallops Lung: Clear on auscultation bilaterally, no wheeze, rale, rhonchi. GI: Abdominal soft, nondistended, nontenderness, positive bowel sounds. Extremity: No crepitus, cyanosis, edema. Pedal pulses present bilateral. Full range of motion. Skin: Normal turgor, no rash. Psych: Alert, oriented x3. Neurology: No focal deficits, cranial nerve II to XII grossly intact. This medical document was created using an electronic medical record system with [employer] direct computerized dictation system. Although this document has been carefully reviewed, there may still be some phonetic and typographical errors. These areas are purely typographical due to imperfections of the software programs, and do not reflect any compromise in the patient's medical care. Condition at Discharge: Stable Final Diagnosis/Problems List # Incarcerated hernia with small-bowel obstruction, status post surgery #Hypertension #Diabetes type 2 Discharge Disposition: Home Discharge Instruct/Medications Scheduled Amoxicillin & Pot Clavulanate (Augmentin Tablet), 875 MG PO BID Scheduled PRN Hydrocodone-Acetaminophen (Hydrocodone Bitartrate/AC 5-325 mg), 1 TAB PO Q6HPRN PRN Discharge Statement: "Patient was advised to return to the ER or call 911 if any headaches, dizziness, shortness of breath, chest pain, abdominal pain, bleeding, fevers, or worsening of medical condition. Patient was counseled about treatment plan, medications, possible side effects, patientverbalized understanding. All questions were answered to the best of my ability. This discharge took greater then 30 minutes in planning, reviewing documentation, counseling the patient, and discussing with other team members." ASSESSMENT ASSESSMENT Assessment Strangulated left inguinal hernia with small bowel obstruction Date of Service: Jul 06, 2025 Billing Provider: JAKE ARNOLD MD Common Visit Codes: 11142-ECH/OBS DISCH DAY >30min JAKE ARNOLD MD Jul 06, 2025 11:05
[2025-07-06] MEDS ORDERED: AUG875T PO (12:22)
[2025-07-06] MEDS ORDERED: HYDR-4902 PO (12:22)
== END 2025-07-06 18:54 | disposition home or self-care (01) | DRG 228 ==
LOC: ER 03:16 → OVERFLOW 07:20 → CENTRAL 18:00
PROVIDERS: ADMIT Internal Medicine; ATTEND Internal Medicine
PROC: 0D9670Z Drainage of Stomach with Drainage Device, Via Natural or Artificial Opening (ICD-10-PCS; 2025-07-04)
PROC: 0YU60JZ Supplement Left Inguinal Region with Synthetic Substitute, Open Approach (ICD-10-PCS; principal; 2025-07-04 13:56)
DX: K40.30 Unilateral inguinal hernia, with obstruction, without gangrene, not specified as recurrent (principal); E11.9 Type 2 diabetes mellitus without complications; I10 Essential (primary) hypertension; R33.8 Other retention of urine; I16.0 Hypertensive urgency
CPT/HCPCS: 36415; 71045; 74177; 80053; 80061; 81001; 82962; 83036; 83605; 83690; 85025; 85610; 85730; 87040; 88302; 94640; 96361; 96374; 96375; 97163; 99291; G0378; J0131; J0330; J1815; J2250; J2405; J2543; J2704; J3480; J3490